=== PATIENT | female | born 1990 | race Caucasian/White ===

== ENCOUNTER 2016-11-12 11:53 | Outpatient (CLI) | payer OTHER ==
[~2016-11-12] VITALS: Ht 165.1 cm; Wt 93.8 kg
[~2016-11-12 11:53] MED LIST: PREN1TAB49 PO
[2016-11-12 12:49] LABS: ADD SCAN DIFF NO
[2016-11-12 12:50] LABS: BASOPHILS % 0.2 % (0.0-2.0); EOSINOPHILS # 0.1 10^3/ul (0.0-0.5); EOSINOPHILS % 0.9 % (0.0-7.0); HEMOGLOBIN 12.8 g/dl (12.0-16.0); LYMPHOCYTES # 2.2 10^3/ul (0.8-2.9); LYMPHOCYTES % 19.3 % (15.0-51.0); MEAN CORPUSCULAR HEMOGLOBIN 31.1 pg (29.0-33.0); MEAN CORPUSCULAR HGB CONC 33.7 g/dl (32.0-37.0); MEAN CORPUSCULAR VOLUME 92.2 fl (82.0-101.0); MEAN PLATELET VOLUME 10.9 fl (7.4-10.4); MONOCYTE # 0.7 10^3/ul (0.3-0.9); MONOCYTES % 6.3 % (0.0-11.0); NEUTROPHIL # 8.2 10^3/ul (1.6-7.5); PLATELET COUNT 244 10^3/UL (140-415); RED BLOOD COUNT 4.12 10^6/ul (4.20-5.40); RED CELL DISTRIBUTION WIDTH 12.9 % (11.5-14.5); WHITE BLOOD COUNT 11.4 10^3/ul (4.8-10.8)
[2016-11-12 12:51] LABS: ADD UMIC NO; URINE BILIRUBIN (Dip) NEGATIVE (NEGATIVE); URINE BLOOD (Dip) NEGATIVE (NEGATIVE); URINE COLOR YELLOW (YELLOW); URINE GLUCOSE (Dip) NEGATIVE (NEGATIVE); URINE KETONES (Dip) NEGATIVE (NEGATIVE); URINE LEUKOCYTE ESTERASE (Dip) NEGATIVE (NEGATIVE); URINE NITRITE (Dip) NEGATIVE (NEGATIVE); URINE TOTAL PROTEIN (Dip) NEGATIVE (NEGATIVE); URINE UROBILINOGEN (Dip) 0.2 E.U./dL (0.1-1.0)
[2016-11-12 13:10] LABS: ALBUMIN 3.8 g/dl (3.3-4.9)
--- NOTE | 2016-11-12 13:10 | RADRPT ---
PROCEDURE: US OB biophysical profile. CLINICAL INDICATION: decreased movements, PIH TECHNIQUE: Multiple sonographic images of the pelvis were obtained. The images were reviewed on a PACS workstation. COMPARISON: 07/18/16 FINDINGS: There is a single viable intrauterine gestation. Cardiac activity is present with 142 beats per min sofie. There is a vertex presentation. The placenta is posterior. There is no evidence of placental abruption. There is a normal amount of amniotic fluid with an JERARDO = 11.9 cm. Biophysical profile: movement 2/2 tone 2/2. breathing 2/2 JERARDO 2/2 Total 03/17 RPTAT: AA . IMPRESSION: Normal biophysical profile. . .Chacorta Hilton MD, MD Date Time Electronically viewed and signed by .Chacorta Hilton MD, MD on 11/12/2016 13:10 .S/
[2016-11-12 13:12] LABS: CREATININE 0.53 mg/dl (0.44-1.00)
[2016-11-12 13:13] LABS: ALBUMIN/GLOBULIN RATIO 1.02; BILIRUBIN,INDIRECT 0.1 mg/dl (0-1.1); BILIRUBIN,TOTAL 0.1 mg/dl (0.2-1.3); TOTAL PROTEIN 7.5 g/dl (6.1-8.1); URIC ACID 4.1 mg/dl (3.1-7.9)
[2016-11-12 13:14] LABS: CALCIUM 9.5 mg/dl (8.4-10.2)
[2016-11-12 13:22] VITALS: Ht 165.1 cm; Wt 93.8 kg
[2016-11-12 13:23] VITALS: BP 120/68; PULSE 78; RESP 18
--- NOTE | 2016-11-12 14:20 | QN ---
Documentation Comment 25 y/o female sent in for R/O PIH at 37 + weeks Patient is asymptomatic All BPs are Normal all labs WNL will follow : out patient LÓPEZ REYNOLDS MD Nov 12, 2016 14:20
== END 2016-11-12 14:40 | disposition home or self-care (01) ==
LOC: OBT 11:53 → L-D 11:54 → OBT 14:40
PROVIDERS: ATTEND Obstetrics & Gynecology
DX: O13.3 Gestational [pregnancy-induced] hypertension without significant proteinuria, third trimester (principal); O36.8130 Decreased fetal movements, third trimester, not applicable or unspecified; Z3A.37 37 weeks gestation of pregnancy
CPT/HCPCS: 76818; 80053; 81003; 84560; 85025; Z7500; G0463

== ENCOUNTER 2016-11-24 13:00 | Inpatient (IN) | payer OTHER ==
[~2016-11-24] VITALS: Ht 162.6 cm; Wt 103.7 kg
[2016-11-24 14:13] VITALS: BMI 35.4
[2016-11-24] MEDS ORDERED: LACTATED RINGER'S 1,000 ML IV SCH (14:15)
[2016-11-24 14:28] LABS: ADD SCAN DIFF NO
[2016-11-24] MEDS ORDERED: LIDOCAINE 1% (MPF) 30 ML INJ INJ PRN (14:30)
[2016-11-24] MEDS ORDERED: METHYLERGONOVINE 0.2 MG INJ IM PRN ×2 (14:30→23:00)
[2016-11-24] MEDS ORDERED: MISOPROSTOL 200 MCG TAB PR PRN ×2 (14:30→23:00)
[2016-11-24] MEDS ORDERED: CARBOPROST 250 MCG INJ IM PRN ×2 (14:30→23:00)
[2016-11-24] MEDS ORDERED: IBUPROFEN 600 MG TAB PO PRN (14:30)
[2016-11-24] MEDS ORDERED: BUTORPHANOL 2 MG INJ IV PRN (14:30)
[2016-11-24] MEDS ORDERED: OXYTOCIN 30 UNITS/LR 500 ML IV PRN ×2 (14:30→23:00)
[2016-11-24] MEDS ORDERED: OXYTOCIN 30 UNITS/LR 500 ML IV SCH (14:30)
[2016-11-24] MEDS ORDERED: LACTATED RINGER'S 1,000 ML IV PRN (14:30)
[2016-11-24 14:38] LABS: BASOPHILS % 0.2 % (0.0-2.0); EOSINOPHILS # 0.1 10^3/ul (0.0-0.5); EOSINOPHILS % 1.3 % (0.0-7.0); HEMATOCRIT 39.1 % (37.0-47.0); HEMOGLOBIN 12.8 g/dl (12.0-16.0); LYMPHOCYTES # 2.3 10^3/ul (0.8-2.9); MEAN CORPUSCULAR HEMOGLOBIN 30.2 pg (29.0-33.0); MEAN CORPUSCULAR HGB CONC 32.7 g/dl (32.0-37.0); MEAN CORPUSCULAR VOLUME 92.2 fl (82.0-101.0); MEAN PLATELET VOLUME 11.2 fl (7.4-10.4); MONOCYTE # 0.6 10^3/ul (0.3-0.9); MONOCYTES % 5.7 % (0.0-11.0); NEUTROPHIL # 7.3 10^3/ul (1.6-7.5); NEUTROPHILS % 70.1 % (39.0-77.0); PLATELET COUNT 237 10^3/UL (140-415); RED BLOOD COUNT 4.24 10^6/ul (4.20-5.40); RED CELL DISTRIBUTION WIDTH 13.4 % (11.5-14.5); WHITE BLOOD COUNT 10.4 10^3/ul (4.8-10.8)
[2016-11-24 14:42] LABS: INR 0.93; PARTIAL THROMBOPLASTIN TIME 26.3 Sec (25.0-35.0); PROTIME 12.5 Sec (12.2-14.2)
[2016-11-24] MEDS ORDERED: DINOPROSTONE 10 MG VAG SUPP VAG ONE (15:30)
[2016-11-24 15:58] VITALS: Ht 162.6 cm; Wt 103.7 kg
[2016-11-24 15:59] VITALS: BP 116/56; PULSE 133
[2016-11-24] MEDS ORDERED: FENTAnyl 2MCG/ML-ROPIV 0.2% 100 ML ONE (18:00)
[2016-11-24] MEDS ORDERED: NALOXONE (0.4 MG/ML) INJ IV PRN (19:30)
[2016-11-24] MEDS ORDERED: FENTAnyl 2MCG/ML-ROPIV 0.2% 100 ML BAG EPI SCH (19:30)
[2016-11-24] MEDS ORDERED: EPHEDrine SULFATE 50 MG/5 ML SYG IV PRN (19:30)
[2016-11-24] MEDS ORDERED: ONDANSETRON 4 MG INJ IV PRN (19:30)
--- NOTE | 2016-11-24 20:24 | HP ---
Date/Time of Note Date/Time of Note DATE: 11/24/16 TIME: 20:19 OB - History Hx of Present Free Text/Dictation admitted for induction of the labor at term Last Menstrual Period: Feb 21, 2016 Estimated Due Date: Nov 27, 2016 : 2 Para: 1 Care: Good Care Ultrasounds: Normal mid trimester US Obstetrical Complications: None Medical Complications: None Past Family/Social History * Past Medical, Surgical, Family and Obstetric Histories reviewed from chart. Blood Type: B+ Rubella: immune RPR/VDRL: Negative GBS Status: Negative HBsAG: Negative OB Admission Exam Vital Signs Vital Signs Vital Signs Date Time Temp Pulse Resp B/P Pulse Ox O2 Delivery O2 Flow Rate FiO2 11/24/16 15:59 98.1 133 116/56 Physical Exam HEENT: WNL Heart: Rhythm Normal Lungs: Clear, Equal Abdomen: WNL Extremities: Normal Reflexes: Normal Cervical Dilatation: Fingertip Effacement: 0% Station: -3 Membranes: Intact Heart Rate: 140's Accelerations: Accelerations Present Decelerations: No Decelerations Varibility: Marked Contractions on Admission: None Last 72 hours Lab Results CBC & BMP 11/24/16 14:00 OB Assessment/Plan Reason for admission: induction of labor Other Assessment: term gestation Induction Method: per Misoprostol Protocol LÓPEZ REYNOLDS MD Nov 24, 2016 20:24
[2016-11-24] MEDS ORDERED: MINERAL OIL LIGHT 10 ML VIAL TOP ONE (20:30)
[2016-11-24] MEDS: OXYTOCIN 30 UNITS/LR 500 ML IV SCH ×2 (20:49→20:57)
--- NOTE | 2016-11-24 21:20 | LDN ---
Date/Time of Note Date/Time of Note DATE: 11/24/16 TIME: 21:14 Delivery Summary of a viable over intact perineum Weeks of Gestation 39+ Placenta Delivered: Spontaneously, Intact & Complete Meconium: none Episiotomy: No Perineal laceration: 3 Laceration repair: 3rd degree perineal laceration was repaired as follows: levator ani muscle and anal sphincter in multiple stitches of 2 0 Vicryl. afterwards secind degree parineal laceration was repaired in layers with 2 0 Vicryl and 2 0 Chromic Anesthesia type: Epidural Estimated blood loss: 300 Sponge & Needle done & correct: Yes All needle counts correct: Yes Any foreign bodies felt in the: No Problems: Delivery Information Sex Sex: female Apgars 1 Minute: 9 5 Minute: 9 Suctioning Nose & mouth suctioned at abdi: Yes Delee suction performed: No Umbilical Cord Umbilical cord with: 3 Vessels Cord presentations: no nuchal cord Cord Blood was obtained: Yes Mother & Baby Disposition Disposition Mom & Baby to Maternity; Good: Yes (mother and baby were recovered in good condition ) Mom transferred to: Other (maternity ) Baby to NICU: No LÓPEZ REYNOLDS MD Nov 24, 2016 21:20
[2016-11-24] MEDS ORDERED: LACTATED RINGER'S 1,000 ML IV* SCH (22:54)
[2016-11-24 23:00] VITALS: BP 128/67; PULSE 110; RESP 18
[2016-11-24] MEDS ORDERED: ZOLPIDEM 5 MG TAB PO PRN (23:00)
[2016-11-24] MEDS ORDERED: ACETAMINOPHEN/CODEINE #3 TAB PO PRN (23:00)
[2016-11-24] MEDS ORDERED: BENZOCAINE 20% 56 ML SPRAY TOP PRN (23:00)
[2016-11-24] MEDS ORDERED: LANOLIN 7 GM TUBE TOP PRN (23:00)
[2016-11-24] MEDS ORDERED: DIBUCAINE 1% 30 GM OINT PR PRN (23:00)
[2016-11-24] MEDS ORDERED: WITCH HAZEL/GLYCERIN PAD PR PRN (23:00)
[2016-11-25] VITALS: BP 115/63; PULSE 110; RESP 18
[2016-11-25] MEDS: IBUPROFEN 600 MG TAB PO SCH ×5 (00:08→23:50)
[2016-11-25] MEDS: CEPHALEXIN 500 MG CAP PO SCH ×5 (00:08→23:50)
[2016-11-25 04:10] VITALS: BP 110/62; PULSE 70; RESP 18
[2016-11-25 08:12] LABS: ADD SCAN DIFF NO
[2016-11-25 08:19] LABS: BASOPHILS % 0.2 % (0.0-2.0); EOSINOPHILS % 0.1 % (0.0-7.0); HEMATOCRIT 37.5 % (37.0-47.0); HEMOGLOBIN 12.6 g/dl (12.0-16.0); LYMPHOCYTES % 13.2 % (15.0-51.0); MEAN CORPUSCULAR HGB CONC 33.6 g/dl (32.0-37.0); MEAN CORPUSCULAR VOLUME 92.1 fl (82.0-101.0); MONOCYTE # 0.9 10^3/ul (0.3-0.9); MONOCYTES % 5.7 % (0.0-11.0); NEUTROPHILS % 80.1 % (39.0-77.0); PLATELET COUNT 221 10^3/UL (140-415); RED BLOOD COUNT 4.07 10^6/ul (4.20-5.40); RED CELL DISTRIBUTION WIDTH 13.3 % (11.5-14.5)
[2016-11-25 09:10] VITALS: BP 122/74; PULSE 103; RESP 19
[2016-11-25] MEDS: SENNA/DOCUSATE NA (8.6MG/50MG) TAB PO SCH ×2 (09:41→21:28)
[2016-11-25] MEDS: MAGNESIUM HYDROXIDE 30ML CUP PO SCH ×2 (09:41→21:28)
[2016-11-25] MEDS: ESTROGENS CONJUGATED 42.5 GM VAG CR VAG SCH ×2 (09:42→21:28)
[2016-11-25] MEDS: ACETAMINOPHEN/CODEINE #3 TAB PO PRN ×2 (09:42→19:43)
[2016-11-25 12:50] VITALS: BP 119/86; PULSE 82; RESP 17
[2016-11-25 16:15] VITALS: BP 112/78; PULSE 85; RESP 18
--- NOTE | 2016-11-25 18:44 | DS ---
Date/Time of Note Date/Time of Note home next day DATE: 11/25/16 TIME: 18:42 Obstetrical Discharge Record Final Diagnosis Final Diagnosis: Term delivered Other Final Diagnosis S/P vaginal delivery Vaginal Delivery Obstetrical Delivery: Spontaneous, Laceration, Repaired Complications Augmentation: No Induction: Yes Condition on Discharge Physical Assessment Last Vitals: See nurses notes Voiding: Yes Bowel Movement: Yes Breast: Soft, non-tender, Filling Fundus: Firm Abdomen and Incision: soft bs + Episiotomy: perineum healing Calf Tenderness: No Patient Condition: Good LÓPEZ REYNOLDS MD Nov 25, 2016 18:44
--- NOTE | 2016-11-25 18:45 | PD.PPDC ---
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
[2016-11-25] MEDS ORDERED: IBUP-1542 PO (18:46)
[2016-11-25 20:26] VITALS: BP 112/70; PULSE 99; RESP 18
[2016-11-26] MEDS: ACETAMINOPHEN/CODEINE #3 TAB PO PRN (04:13)
[2016-11-26 04:30] VITALS: BP 113/68; PULSE 94; RESP 18
[2016-11-26] MEDS: CEPHALEXIN 500 MG CAP PO SCH ×2 (06:05→11:58)
[2016-11-26] MEDS: IBUPROFEN 600 MG TAB PO SCH ×2 (06:05→11:58)
[2016-11-26 08:30] VITALS: BP 111/64; PULSE 83; RESP 19
[2016-11-26] MEDS: ESTROGENS CONJUGATED 42.5 GM VAG CR VAG SCH (08:50)
[2016-11-26] MEDS: MAGNESIUM HYDROXIDE 30ML CUP PO SCH (08:50)
[2016-11-26] MEDS: SENNA/DOCUSATE NA (8.6MG/50MG) TAB PO SCH (08:50)
[2016-11-26] MEDS ORDERED: VARICELLA VACCINE LIVE/PF 1,350 UNIT/0.5 ML ML SC* ONE (09:00)
[2016-11-26] MEDS ORDERED: MEASLES,MUMPS,RUBELLA VACCINE INJ SC* ONE (09:00)
[2016-11-26] MEDS ORDERED: DIPHTH/TET/ACEL PERTUSS (ADULT) 0.5 ML VIAL IM* ONE (09:00)
[2016-11-26 10:13] LABS: ADD SCAN DIFF NO
[2016-11-26 10:26] LABS: BASOPHILS % 0.4 % (0.0-2.0); EOSINOPHILS # 0.3 10^3/ul (0.0-0.5); EOSINOPHILS % 2.5 % (0.0-7.0); HEMATOCRIT 35.1 % (37.0-47.0); HEMOGLOBIN 11.3 g/dl (12.0-16.0); LYMPHOCYTES # 2.5 10^3/ul (0.8-2.9); LYMPHOCYTES % 23.3 % (15.0-51.0); MEAN CORPUSCULAR HEMOGLOBIN 30.2 pg (29.0-33.0); MEAN CORPUSCULAR HGB CONC 32.2 g/dl (32.0-37.0); MEAN CORPUSCULAR VOLUME 93.9 fl (82.0-101.0); MEAN PLATELET VOLUME 11.2 fl (7.4-10.4); MONOCYTE # 0.7 10^3/ul (0.3-0.9); NEUTROPHILS % 66.2 % (39.0-77.0); PLATELET COUNT 229 10^3/UL (140-415); RED BLOOD COUNT 3.74 10^6/ul (4.20-5.40); RED CELL DISTRIBUTION WIDTH 13.6 % (11.5-14.5); WHITE BLOOD COUNT 10.5 10^3/ul (4.8-10.8)
== END 2016-11-26 15:31 | disposition home or self-care (01) | DRG 775 ==
LOC: L-D 13:03 → PP1 23:00
PROVIDERS: ADMIT Obstetrics & Gynecology; ATTEND Obstetrics & Gynecology
PROC: 0DQR0ZZ Repair Anal Sphincter, Open Approach (ICD-10-PCS; 2016-11-24)
PROC: 3E033VJ Introduction of Other Hormone into Peripheral Vein, Percutaneous Approach (ICD-10-PCS; 2016-11-24)
PROC: 10E0XZZ Delivery of Products of Conception, External Approach (ICD-10-PCS; principal; 2016-11-24 13:00)
DX: O70.20 Third degree perineal laceration during delivery, unspecified (principal); Z37.0 Single live birth; Z3A.39 39 weeks gestation of pregnancy
CPT/HCPCS: 62319; 85025; 85610; 85730; 86592; 86900; 86901; 90715; 90716; J2590; J3010; J7120

== ENCOUNTER 2017-02-07 03:56 | Emergency (ER) | payer OTHER ==
[~2017-02-07] VITALS: Ht 165.1 cm; Wt 85.0 kg
[~2017-02-07 03:56] MED LIST changes: +IBUP-1542 PO
[2017-02-07 04:05] VITALS: Ht 165.1 cm; Wt 85.0 kg
[2017-02-07] MEDS ORDERED: AMOXICILLIN 500 MG CAP PO ONE (05:00)
[2017-02-07] MEDS ORDERED: IBUPROFEN 800 MG TAB PO ONE (05:00)
[2017-02-07] MEDS ORDERED: AMO500 PO (05:27)
[2017-02-07] MEDS ORDERED: IBUP800T25 PO (05:27)
[2017-02-07] MEDS ORDERED: ACET500C5 PO (05:28)
--- NOTE | 2017-02-07 05:45 | ERD ---
ER Documentation Chief Complaint Date/Time DATE: 02/07/17 TIME: 05:39 Chief Complaint sore throat x 2 days HPI This 26-year-old female who presents the emergency department today complaining of sore throat and fever for the past 2 days, pain with swallowing and headache. States she is taking DayQuil and Advil with no improvement in symptoms. Denies any cough. ROS All systems reviewed and are negative except as per history of present illness. Medications Home Meds Active Scripts Acetaminophen* (Tylophen*) 500 Mg Capsule, 1 CAP PO Q6H Y for PAIN AND OR ELEVATED TEMP, #30 CAP Prov:HARJINDER GRIMES PA-C 02/07/17 Ibuprofen* (Motrin*) 800 Mg Tab, 800 MG PO Q6, #30 TAB Prov:HARJINDER GRIMES PA-C 02/07/17 Amoxicillin* (Amoxicillin*) 500 Mg Cap, 500 MG PO TID for 10 Days, CAP Prov:HARJINDER GRIMES PA-C 02/07/17 Ibuprofen* (Ibuprofen*) 600 Mg Tablet, 600 MG PO Q6, #30 TAB 0 Refills Prov:LÓPEZ REYNOLDS MD 11/25/16 Reported Medications Vits W-Ca,Fe,Fa(<1MG) () 1 Tab Tablet, 1 TAB PO DAILY 07/03/12 Allergies Allergies: Coded Allergies: No Known Drug Allergies (Verified Allergy, Unknown, 02/07/17) PMhx/Soc Medical and Surgical Hx: pt denies Medical Hx History of Surgery: Yes (gallstone removal, eye surgery) Anesthesia Reaction: No Hx Neurological Disorder: No Hx Respiratory Disorders: No Hx Cardiac Disorders: No Hx Psychiatric Problems: No Hx Miscellaneous Medical Probl: No Hx Alcohol Use: No Hx Substance Use: No Hx Tobacco Use: No Smoking Status: Never smoker Physical Exam Vitals Vital Signs Date Time Temp Pulse Resp B/P Pulse Ox O2 Delivery O2 Flow Rate FiO2 02/07/17 04:05 100.4 119 20 127/77 97 Physical Exam Const: No acute distress Head: Atraumatic Eyes: Normal Conjunctiva ENT: Normal. Nose no drainage. Throat with erythema bilateral tonsillar exudate Neck: Full range of motion..~ No meningismus. Resp: Clear to auscultation bilaterally Cardio: Regular rate and rhythm, no murmurs Skin: No petechiae or rashes Neur: Awake and alert Psych: Normal Mood and Affect Results 24 hrs Current Medications Medications (Trade) Dose Ordered Sig/Henrik Route PRN Reason Start Time Stop Time Status Last Admin Dose Admin Ibuprofen (Motrin) 800 mg ONCE ONCE PO 02/07/17 05:00 02/07/17 05:01 DC 02/07/17 05:11 Amoxicillin (Amoxicillin) 500 mg ONCE ONCE PO 02/07/17 05:00 02/07/17 05:01 DC 02/07/17 05:20 Procedures/MDM This a 26-year-old female presents to the emergency department today complaining of sore throat and fever for the past 2 days. Patient was febrile at 100.4 here in the emergency department. She was tachycardic. Her physical exam is consistent with strep pharyngitis. Low suspicion for peritonsillar abscess or retropharyngeal abscess. Patient was given Motrin here in the emergency department. She was also given her first dose of amoxicillin. She was given a prescription for Tylenol, Motrin , amoxicillin for home. At this time the patient is stable for discharge and outpatient management. Patient should follow up with their PCP in the next 1-2 days. They may return to the emergency department sooner for any persistent or worsening of symptoms. Patient understood and agreed with the plan. Departure Diagnosis: Primary Impression: Strep pharyngitis Condition: Fair Patient Instructions: Pharyngitis, Strep (Presumed) Additional Instructions: Call your primary care doctor TOMORROW for an appointment during the next 1-2 days.See the doctor sooner or return here if your condition worsens before your appointment time. Start taking antibiotics as prescribed Take Tylenol or Motrin for pain or fever HARJINDER GRIMES PA-C Feb 07, 2017 05:45
[2017-02-07 06:00] VITALS: BP 116/69; PULSE 98; RESP 20
== END 2017-02-07 06:01 | disposition home or self-care (01) ==
LOC: FTE 03:56
DX: J02.9 Acute pharyngitis, unspecified (principal)
CPT/HCPCS: Z7502; Z7610; 99283